=== PATIENT | male | born 1960 | race Caucasian/White ===

== ENCOUNTER → 2020-10-17 | Outpatient (CLI) | payer OTHER ==
--- NOTE | 2020-10-17 11:06 | NUR ---
Spoke with patient to give directions for PFT. When patient arrived they had taken all of their respiratory medications and had caffine todauy. DDS was notified and note faxed over.
== END ==
LOC: COL.PUL 10:25
DX: Z02.71 Encounter for disability determination (principal)

== ENCOUNTER → 2021-01-03 | Outpatient (CLI) | payer OTHER | LOC: COL.PUL 07:57 | DX: Z02.71 Encounter for disability determination (principal); R06.02 Shortness of breath ==